=== PATIENT | male | born 1990 | race Hispanic/Latino ===

== ENCOUNTER 2017-08-04 19:02 | Emergency (ER) | payer BC ==
[~2017-08-04] VITALS: Ht 170.2 cm; Wt 117.9 kg
[2017-08-04 20:05] LABS: BILIRUBIN,URINE NEGATIVE (NEGATIVE); COLOR,URINE YELLOW (YELLOW); KETONES,URINE NEGATIVE (NEGATIVE); LEUKOCYTE ESTERASE ,URINE 1+ (NEGATIVE); NITRITE,URINE NEGATIVE (NEGATIVE); URINE UROBILINOGEN 1 mg/dL (0.2 - 1)
[2017-08-04 20:07] LABS: CLARITY,URINE SL CLOUDY (CLEAR); PROTEIN,URINE DIPSTICK 1+ (NEGATIVE)
[2017-08-04 20:28] LABS: BACTERIA,URINE FEW /HPF; EPITHELIAL CELLS,URINE RARE /LPF; MUCUS,URINE MODERATE (RARE)
[2017-08-04] MEDS ORDERED: HYDROCODONE/APAP 10MG-325MG TAB PO ONE (20:45)
[2017-08-04] MEDS ORDERED: DIAZEPAM 2 MG TAB PO ONE (20:45)
[2017-08-04] MEDS ORDERED: DEXAMETHASONE SOD PHOS 10 MG/1 ML VIAL INJ ONE (20:45)
[2017-08-04] MEDS ORDERED: KETOROLAC TROMETHAMINE 60 MG/2 ML VIAL IM ONE (20:45)
--- NOTE | 2017-08-04 21:58 | Diagnostic Imaging Report ---
SP LUMBAR, COMPLETE MIN 4VW Comparison: None Clinical history: Lower back pain, worse today Findings: Minimal anterior wedging at T11. Otherwise vertebral body heights and disc spaces are preserved. Alignment is intact. No evidence of listhesis or significant degenerative changes. Impression: No acute bony abnormality Signed by: Dr Mary Browning MD on 08/04/2017 9:55 PM
== END 2017-08-04 21:03 | disposition home or self-care (01) ==
LOC: ER 19:02
DX: M54.5 Low back pain (principal); S39.012A Strain of muscle, fascia and tendon of lower back, initial encounter
CPT/HCPCS: 72110; 81001; 99282; J1100; J1885